=== PATIENT | male | born 1950 | race Caucasian/White ===

== ENCOUNTER 2021-06-20 01:22 | Emergency (ER) | payer OTHER ==
[~2021-06-20] VITALS: Ht 170.2 cm; Wt 126.1 kg
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
[2021-06-20 01:29] VITALS: BP 116/60
== END 2021-06-20 06:00 | disposition home or self-care (01) ==
LOC: ER 01:22
DX: F10.129 Alcohol abuse with intoxication, unspecified (principal)